=== PATIENT | male | born 1955 | race Caucasian/White ===

== ENCOUNTER → 2019-06-30 07:54 | Outpatient (CLI) | payer OTHER ==
--- NOTE | ~2019-06-30 | ST ---
PATIENT:SANTIAGO BEVERLY MEDICAL RECORD: [id number] SEX: M LOCATION:[facility] ORDER #: ADMISSION DATE: 06/30/19 AGE OF PATIENT: 64 REFERRING PHYSICIAN: INTERPRETING PHYSICIAN: ANGEL PHILLIPS MD DATE OF SERVICE: 06/30/2019 PROCEDURE: Stress test. INDICATION: Shortness of breath, abnormal ECG. TECHNIQUE: He was exercised on standard Jason protocol for 10 minutes achieving greater than 85% max target heart rate response with no EKG changes, no dysrhythmias, no anginal symptomatology. OVERALL IMPRESSION: Negative for inducible ischemia, adequate cardiac workload. TRANSINT:[id number] Voice Confirmation ID: [id number] DOCUMENT ID: [id number] ANGEL PHILLIPS MD CC: NORBERTO LE MD [id number] DICTATION DATE: 07/01/19 170 CONCIERGE MANAGER: 07/02/19 1153 DEP CLI 06/30/19 [id number] [place] [address]
== END | disposition home or self-care (01) ==
LOC: D.HCCARDIO 07:54
PROVIDERS: ATTEND Internal Medicine Interventional Cardiology
DX: R06.02 Shortness of breath (principal)